=== PATIENT | female | born 1980 | race Hispanic/Latino ===

== ENCOUNTER 2017-08-29 19:20 | Emergency (ER) | payer MEDICAID ==
[2017-08-29 19:43] LABS: APPEARANCE,URINE Cloudy (CLEAR); BILIRUBIN,URINE Negative (NEGATIVE); COLOR,URINE Yellow (YELLOW); GLUCOSE, URINE (UA) Negative (NEGATIVE); KETONES,URINE Negative (NEGATIVE); LEUKOCYTE ESTERASE ,URINE Moderate (NEGATIVE); NITRATE,URINE Negative (NEGATIVE); OCCULT BLOOD,URINE Negative (NEGATIVE); PH,URINE 5.5 (5.0-8.0); PROTEIN,URINE Trace (NEGATIVE)
[2017-08-29 19:47] LABS: HCG,QUAL RESULT NEGATIVE (NEGATIVE)
[2017-08-29] MEDS ORDERED: IPRATROPIUM/ALBUTEROL SULFATE 3 ML SOLUTION IH ONE (20:08)
[2017-08-29 20:12] LABS: MUCUS,URINE Few LPF (None Seen); RBC,URINE None Seen /HPF (0-1); SQUAMOUS EPITHELIAL CELL,UR 30-50 /HPF (0-2)
[2017-08-29 20:13] LABS: BACTERIA,URINE Few /HPF (None Seen); WBC,URINE 26-50 /HPF (0-1)
[2017-08-29 20:28] LABS: BASOPHILS % (AUTO) 1.4 % (0.0-5.0); EOSINOPHILS % (AUTO) 2.1 % (0.0-8.0); HEMATOCRIT 42.3 % (36-48); LYMPHOCYTES % (AUTO) 33.3 % (21.0-51.0); MEAN CORPUSCULAR HEMOGLOBIN 31.4 pg (27.0-33.0); MEAN CORPUSCULAR HGB CONC 34.9 g/dL (32.0-36.0); MEAN CORPUSCULAR VOLUME 89.9 fL (79-99); MONOCYTES % (AUTO) 9.4 % (3.0-13.0); NEUTROPHILS % (AUTO) 53.8 % (40.0-77.0); PLATELET COUNT (AUTO) 135 K/uL (130-400); RED CELL DISTRIBUTION WIDTH 13.5 % (11.0-15.5); WHITE BLOOD COUNT (AUTO) 4.9 K/uL (4.8-10.8)
[2017-08-29 20:34] LABS: CREATININE 0.9 mg/dL (0.5-1.5); POTASSIUM 3.7 mmol/L (3.5-5.1)
[2017-08-29 20:43] LABS: ALBUMIN 3.6 g/dL (3.5-5.0); BILIRUBIN,DIRECT 0.1 mg/dL (0.0-0.3); BILIRUBIN,TOTAL 0.5 mg/dL (0.2-1.0); TOTAL PROTEIN, SERUM 8.3 g/dL (6.0-8.3)
[2017-08-29] MEDS ORDERED: CEFTRIAXONE SODIUM 1 GM ONE (21:14)
[2017-08-29] MEDS ORDERED: KETOROLAC TROMETHAMINE 60 MG/2 ML VIAL ONE (21:14)
[2017-08-29] MEDS ORDERED: LIDOCAINE HCL-MPF 1% 2ML VIAL ONE (21:15)
== END 2017-08-29 21:41 | disposition home or self-care (01) ==
LOC: EDH 19:20
DX: N39.0 Urinary tract infection, site not specified (principal); J20.9 Acute bronchitis, unspecified
CPT/HCPCS: 36415; 80048; 80076; 81001; 81025; 85025; 94640; 96372 ×2; 99284; J0696; J1885; J3490

== ENCOUNTER 2018-02-14 19:39 | Emergency (ER) | payer MEDICAID ==
[2018-02-14] MEDS ORDERED: TETANUS/DIPHTHERIA TOXOID [ADULT] 0.5 ML VIAL IM ONE (19:55)
[2018-02-14] MEDS ORDERED: ONDANSETRON ODT 4 MG TAB ONE (19:55)
== END 2018-02-14 21:13 | disposition home or self-care (01) ==
LOC: EDH 19:39
DX: S61.210A Laceration without foreign body of right index finger without damage to nail, initial encounter (principal); R11.0 Nausea; H91.90 Unspecified hearing loss, unspecified ear; Z98.890 Other specified postprocedural states; X58.XXXA Exposure to other specified factors, initial encounter; Y93.89 Activity, other specified; Y92.89 Other specified places as the place of occurrence of the external cause; Y99.8 Other external cause status
CPT/HCPCS: 12001; 90471; 90714

== ENCOUNTER 2018-02-26 07:42 | Emergency (ER) | payer MEDICAID | END 2018-02-26 08:32 | disposition home or self-care (01) | LOC: EDH 07:42 | DX: Z48.02 Encounter for removal of sutures (principal); X58.XXXD Exposure to other specified factors, subsequent encounter | CPT/HCPCS: 99281 ==